=== PATIENT | female | born 1980 | race Asian ===

== ENCOUNTER 2018-11-02 04:05 | Inpatient (IN) | payer BC ==
[~2018-11-02] VITALS: Ht 162.6 cm; Wt 85.7 kg
[2018-11-02] MEDS ORDERED: LR 1,000 ML IV SCH (04:42)
[2018-11-02] MEDS ORDERED: TERBUTALINE SULFATE 1 MG/ML VIAL SUBCUT ONE (04:45)
[2018-11-02] MEDS ORDERED: CEFAZOLIN 2 GM IVPB PREMIX 50 ML IV ONE (04:45)
[2018-11-02] MEDS ORDERED: TERBUTALINE SULFATE 1 MG/ML VIAL ONE (04:50)
[2018-11-02 05:00] VITALS: BP_SYST 135
[2018-11-02 05:16] LABS: BILIRUBIN,URINE NEGATIVE (NEGATIVE); BLOOD, URINE 3+ (NEGATIVE); CLARITY/URINE CLEAR (CLEAR); COLOR,URINE YELLOW (YELLOW); GLUCOSE,URINE NEGATIVE (NEGATIVE); KETONES,URINE 2+ (NEGATIVE); LEUKOCYTE ESTERASE ,URINE NEGATIVE (NEGATIVE); NITRITE, URINE NEGATIVE (NEGATIVE); PROTEIN URINE 1+ (NEGATIVE)
[2018-11-02 05:18] LABS: BASOPHILS % (AUTO) 0.2 % (0.0-2.0); EOSINOPHILS # (AUTO) 0.1 K/uL (0.0-0.4); EOSINOPHILS % (AUTO) 0.5 % (0.0-4.0); HEMATOCRIT 39.8 % (36-48); HEMOGLOBIN 13.6 g/dL (12.0-16.0); LYMPHOCYTES # (AUTO) 2.3 K/uL (1.0-5.5); LYMPHOCYTES % (AUTO) 22.1 % (20.5-51.5); MEAN CORPUSCULAR HEMOGLOBIN 32 pg (27-31); MEAN CORPUSCULAR HGB CONC 34 % (32-36); MEAN CORPUSCULAR VOLUME 93 fL (79.0-98.0); MONOCYTES # (AUTO) 0.8 K/uL (0.0-1.0); MONOCYTES % (AUTO) 7.1 % (1.7-9.3); NEUTROPHILS # (AUTO) 7.4 K/uL (1.8-7.7); NEUTROPHILS % (AUTO) 70.1 % (40.0-70.0); PLATELET COUNT (AUTO) 198 K/uL (130-430); RED BLOOD CELL COUNT(AUTO) 4.28 MIL/uL (4.2-6.2); RED CELL DISTRIBUTION WIDTH 13.8 % (9.0-15.0); WHITE BLOOD COUNT (AUTO) 10.6 K/uL (4.8-10.8)
[2018-11-02 05:19] LABS: BACTERIA,URINE FEW /HPF (None Seen); RBC,URINE 50-80 /HPF (0-3); WBC,URINE 0-3 /HPF (0-3)
[2018-11-02] MEDS: LR 1,000 ML IV SCH ×2 (07:30→23:00)
[2018-11-02] MEDS ORDERED: NS IRRIG SOLN 1000 ML IR ONE (07:55)
[2018-11-02] MEDS ORDERED: LR 1,000 ML IV.SOLN IV ONE (07:55)
[2018-11-02] MEDS ORDERED: OXYTOCIN 10 UNIT/ML VIAL IV ONE (07:55)
[2018-11-02] MEDS ORDERED: MORPHINE SULFATE 10MG/10ML PF AMP EP ONE (07:55)
[2018-11-02] MEDS ORDERED: BUPIVACAINE /DEX PF 0.75% SPINAL 2 ML AMP INJ ONE (07:55)
[2018-11-02] MEDS ORDERED: DIPHENHYDRAMINE INJ 50 MG/ML VIAL IVP PRN (09:00)
[2018-11-02] MEDS ORDERED: ONDANSETRON HCL 4 MG/2 ML VIAL IVP PRN (09:00)
[2018-11-02] MEDS ORDERED: NALBUPHINE HCL 10 MG/ML AMP IVP PRN (09:00)
[2018-11-02] MEDS ORDERED: MORPHINE SULFATE 10MG/10ML PF AMP SP SCH (09:00)
[2018-11-02] MEDS ORDERED: KETOROLAC TROMETHAMINE 60 MG/2 ML VIAL IM PRN (09:00)
[2018-11-02] MEDS ORDERED: NALOXONE HCL 0.4 MG/ML AMP (NARCAN) IVP PRN ×2 (09:00)
[2018-11-02] MEDS ORDERED: fentaNYL CITRATE/PF 100 MCG/2 ML AMP IVP PRN ×2 (09:00)
[2018-11-02 10:27] VITALS: BP_SYST 116
[2018-11-02] MEDS ORDERED: OXYTOCIN/0.9 % SODIUM CHLORIDE 1,000 ML IV ONE (12:05)
[2018-11-02] MEDS ORDERED: DIPH-TET-PERTUS Vaccine 0.5 ML VIAL (ADACEL) I.M. PRN (12:15)
[2018-11-02] MEDS ORDERED: ANUSOL 1 EA SUPP.RECT (PREPARATION H) RC PRN (12:15)
[2018-11-02] MEDS ORDERED: OXYCODONE/ACETAMINOPHEN 5-325 TABLET PO PRN (12:15)
[2018-11-02] MEDS ORDERED: BISACODYL 10 MG/SUPPOSITORY RC PRN (12:15)
[2018-11-02] MEDS ORDERED: ACETAMINOPHEN 325 MG TABLET PO PRN (12:15)
[2018-11-02] MEDS ORDERED: SENNOSIDES/DOCUSATE SODIUM 1 TAB TABLET(SENOKOT-S) PO PRN (12:15)
[2018-11-02] MEDS ORDERED: LANOLIN 7 GM OINT. TP PRN (12:15)
[2018-11-02] MEDS ORDERED: CEFAZOLIN 1 GM IVPB PREMIX 50 ML IV SCH (15:00)
[2018-11-02] MEDS: CEFAZOLIN 1 GM IVPB PREMIX 50 ML IV SCH ×2 (15:15→21:02)
[2018-11-02] MEDS: KETOROLAC TROMETHAMINE 30 MG VIAL IVP PRN (17:36)
[2018-11-03] MEDS: KETOROLAC TROMETHAMINE 30 MG VIAL IVP PRN
[2018-11-03] MEDS: CEFAZOLIN 1 GM IVPB PREMIX 50 ML IV SCH (02:52)
[2018-11-03] MEDS: IBUPROFEN 600 MG TABLET PO SCH ×3 (06:26→18:13)
[2018-11-03] MEDS: LR 1,000 ML IV SCH (07:00)
[2018-11-03 07:03] LABS: BASOPHILS % (AUTO) 0.1 % (0.0-2.0); EOSINOPHILS % (AUTO) 0.5 % (0.0-4.0); HEMATOCRIT 32.4 % (36-48); HEMOGLOBIN 11.2 g/dL (12.0-16.0); LYMPHOCYTES # (AUTO) 1.1 K/uL (1.0-5.5); LYMPHOCYTES % (AUTO) 10.1 % (20.5-51.5); MEAN CORPUSCULAR HEMOGLOBIN 32 pg (27-31); MEAN CORPUSCULAR HGB CONC 35 % (32-36); MEAN CORPUSCULAR VOLUME 93 fL (79.0-98.0); MONOCYTES # (AUTO) 0.6 K/uL (0.0-1.0); MONOCYTES % (AUTO) 6.2 % (1.7-9.3); NEUTROPHILS # (AUTO) 8.7 K/uL (1.8-7.7); NEUTROPHILS % (AUTO) 83.1 % (40.0-70.0); PLATELET COUNT (AUTO) 175 K/uL (130-430); RED BLOOD CELL COUNT(AUTO) 3.48 MIL/uL (4.2-6.2); RED CELL DISTRIBUTION WIDTH 13.5 % (9.0-15.0); WHITE BLOOD COUNT (AUTO) 10.4 K/uL (4.8-10.8)
[2018-11-03] MEDS: DOCUSATE SODIUM 100 MG CAPSULE PO PRN (09:55)
[2018-11-03] MEDS: SIMETHICONE 80 MG TAB.CHEW PO PRN ×2 (09:55→14:51)
[2018-11-03] MEDS: OXYCODONE/ACETAMINOPHEN 5-325 TABLET PO PRN (09:55)
[2018-11-04] MEDS: IBUPROFEN 600 MG TABLET PO SCH ×3 (00:12→11:49)
[2018-11-04] MEDS: DOCUSATE SODIUM 100 MG CAPSULE PO PRN ×2 (00:12→05:47)
[2018-11-04] MEDS: SIMETHICONE 80 MG TAB.CHEW PO PRN (08:08)
[2018-11-04] MEDS: OXYCODONE/ACETAMINOPHEN 5-325 TABLET PO PRN (14:08)
== END 2018-11-04 16:45 | disposition home or self-care (01) | DRG 788 ==
LOC: SPU 04:05
PROVIDERS: ADMIT Obstetrics & Gynecology; ATTEND Obstetrics & Gynecology
PROC: 10D00Z1 Extraction of Products of Conception, Low, Open Approach (ICD-10-PCS; principal; 2018-11-02 07:00)
DX: O42.92 Full-term premature rupture of membranes, unspecified as to length of time between rupture and onset of labor (principal); O34.211 Maternal care for low transverse scar from previous cesarean delivery; Z37.0 Single live birth; Z3A.38 38 weeks gestation of pregnancy
CPT/HCPCS: 36415; 81000-TC; 81002-TC; 85025; 86886; 86900; 86901; 94760; J0690; J1885; J2274; J2590; J3105; J3490; J7120